=== PATIENT | female | born 1980 | race African-American/Black ===

== ENCOUNTER 2020-05-03 10:02 | Emergency (ER) | payer OTHER ==
[~2020-05-03] VITALS: Ht 165.1 cm; Wt 103.0 kg
[2020-05-03] MEDS ORDERED: ACETAMINOPHEN 325 MG TAB ONE (10:30)
[2020-05-03] MEDS ORDERED: ACETAMINOPHEN 325 MG TAB PO ONE (10:30)
[2020-05-03] MEDS ORDERED: ONDANSETRON HCL 4 MG ORAL DISINTEGRATING TAB PO NR (10:30)
[2020-05-03] MEDS ORDERED: KETOROLAC TROMETHAMINE 60 MG/2 ML VIAL IM NR (10:30)
[2020-05-03] MEDS ORDERED: KETOROLAC TROMETHAMINE 30 MG/ML VIAL ONE (10:30)
[2020-05-03] MEDS ORDERED: TYLENOL WITH C1 EACH PO (10:31)
[2020-05-03] MEDS ORDERED: TIZANIDINE HCL4 MG PO (10:31)
--- NOTE | 2020-05-03 10:32 | Emergency Department Note ---
History of Present Illnes History of Present Illness Chief Complaint: Back Pain History of Present Illness This is a 39 year old female diabetes obese chronic back pain c/o worsening back pain for 1 week, more on the left. She was rec to have back surgeries but she declined that option. Arrival Mode: [employer] Required: No Onset (how long ago): week(s) Radiation: Reports back, Reports extremity Onset quality: gradual Progression: worsening Relieving factors: none Exacerbating factors: movement Associated symptoms: Reports denies other symptoms Treatments prior to arrival: none Previous service: medications given, tests performed Past Medical/Family History Physician Review I have reviewed the patient's past medical and family history. Any updates have been documented here. Past Medical History Recent Fever: No Clinical Suspicion of Infectio: No New/Unexplained Change in Ment: No Past Medical History: Hypertension, Diabetes, Hyperlipedemia Past Surgical History: Social History Smoking Cessation: Never Smoker Counseling Performed: No Alcohol Use: None Any Illegal Drug Use: No Physically hurt or threatened: No Other Any Pre-Existing Lines (PICC,: No Review of Systems Review of Systems Constitutional: Reports no symptoms EENTM: Reports no symptoms Cardiovascular: Reports no symptoms Respiratory: Reports no symptoms Gastrointestinal: Reports no symptoms Genitourinary: Reports no symptoms Musculoskeletal: Reports as per HPI, Reports back pain Integumentary: Reports no symptoms Neurological: Reports no symptoms Psychological: Reports no symptoms Endocrine: Reports no symptoms Hematological/Lymphatic: Reports no symptoms Physical Exam Related Data Allergies: Coded Allergies: No Known Allergies (Unverified , 05/03/20) Vital signs reviewed: Yes Physical Exam CONSTITUTIONAL Constitutional: Present well-developed, Present well-nourished HENT HENT: Present normocephalic, Present atraumatic, Present oropharynx clear/moist, Present nose normal HENT L/R: Present left ext ear normal, Present right ext ear normal EYES Eyes: Reports PERRL, Reports conjunctivae normal NECK Neck: Present ROM normal PULMONARY Pulmonary: Present effort normal, Present breath sounds normal CARDIOVASCULAR Cardiovascular: Present regular rhythm, Present heart sounds normal, Present capillary refill normal, Present normal rate GASTROINTESTINAL Abdominal: Present soft, Present nontender, Present bowel sounds normal GENITOURINARY Genitourinary: Present exam deferred SKIN Skin: Present warm, Present dry MUSCULOSKELETAL Musculoskeletal: Present ROM normal, Present tenderness (left paraspinous muscle) NEUROLOGICAL Neurological: Present alert, Present oriented x 3, Present no gross motor or sensory deficits, Present other (positive straight leg raise more on the left) PSYCHOLOGICAL Psychological: Present mood/affect normal, Present judgement normal Assessment & Plan Medical Decision Making MDM chronic back pain Assessment & Plan Final Impression: (1) Acute low back pain with left-sided sciatica (2) Chronic lower back pain Depart Disposition: HOME, SELF-snf Meds Active Scripts Tizanidine Hcl (TIZANIDINE HCL) 4 Mg Tablet, 4 MG PO Q8H for BACK PAIN, #30 TAB Prov:DEUCE MARCOS MD 05/03/20 Acetaminophen With Codeine (TYLENOL WITH CODEINE #3 TABLET) 1 Each Tablet, 300 MG PO Q6H for back pain, #30 TAB Prov:DEUCE MARCOS MD 05/03/20 Physician Attestation Provider Attestation PLATING ENGINEER score [id number] DEUCE MARCOS MD May 03, 2020 10:32
== END 2020-05-03 10:39 | disposition home or self-care (01) ==
LOC: FSED 10:27
DX: M54.42 Lumbago with sciatica, left side (principal); G89.29 Other chronic pain; I10 Essential (primary) hypertension; E11.9 Type 2 diabetes mellitus without complications; E78.5 Hyperlipidemia, unspecified
CPT/HCPCS: 96372; 99283; J1885; Q0162